=== PATIENT | male | born 1950 | race Caucasian/White ===

== ENCOUNTER → 2016-08-29 | Outpatient (CLI) | payer MEDICARE, OTHER ==
[2016-08-29 08:06] LABS: BASOPHILS % (AUTO) 0 % (0-2); EOSINOPHILS # (AUTO) 0.1 10^3uL; EOSINOPHILS % (AUTO) 2 % (0-4); LYMPHOCYTES # (AUTO) 1.1 X10^3; MEAN CORPUSCULAR HEMOGLOBIN 29.5 PG (26.0-34.0); MEAN CORPUSCULAR HGB CONC 33.4 g/dL (31.0-37.0); MEAN CORPUSCULAR VOLUME 88 FL (80-100); MEAN PLATELET VOLUME 9.7 FL (6.0-9.5); MONOCYTES # (AUTO) 0.9 X10^3; MONOCYTES % (AUTO) 15 % (3-11); NEUTROPHILS % (AUTO) 65 % (51-67); PLATELET COUNT 195 10^3uL (150-450)
[2016-08-29 08:27] LABS: ALBUMIN 4.4 g/dL (3.4-5.0); ANION GAP 15.8 MEQ/L (3-15); CALCULATED IONIZED CALCIUM 4.4 mg/dL (3.8-4.6); TOTAL PROTEIN 6.8 g/dL (6.4-8.5)
== END ==
LOC: LAB 07:52
PROVIDERS: ATTEND Internal Medicine Hematology & Oncology
DX: C81.90 Hodgkin lymphoma, unspecified, unspecified site (principal)
CPT/HCPCS: 36415; 80053; 83615; 85025

== ENCOUNTER → 2016-08-31 | Outpatient (CLI) | payer MEDICARE, OTHER ==
[~2016-08-31] MED LIST: LVT.05T PO; MELA1TAB8 PO
--- NOTE | 2016-08-31 12:32 | Diagnostic Imaging Report ---
PROCEDURE: CT chest, abdomen, and pelvis with contrast. TECHNIQUE: Multiple contiguous axial images were obtained through the chest, abdomen, and pelvis after the administration of intravenous contrast. INDICATION: Lymphoma. COMPARISON: Exam compared 08/12/2015. FINDINGS: NECK: There is mild membrane thickening involving left greater than right maxillary sinuses. No air-fluid level. No bony destruction. Mastoids and middle ear cavities clear. The orbits are unremarkable. No pathologically enlarged morphologically distorted nor abnormally numerous cervical lymph nodes were found. The nasopharynx, oropharynx and hypopharynx unremarkable. The parotid, submandibular and thyroid glands unremarkable. CHEST: A right axillary node measures 1.5 x 0.9 cm unchanged from prior. Pretracheal node at the level of the sondra measures 1.7 x 1.2 cm, unchanged. Tiny low density right hilar node just above the right pulmonary artery, is 7 mm, barely perceptible on followup. No pathological appearing hilar favian tissue. No new mass. There is no pleural or pericardial effusion. There is no focal pulmonary consolidation, dominant lung mass or suspicious pulmonary nodules. There is no effusion. No acute chest wall pathology. ABDOMEN AND PELVIS: Nonfocal spleen remains within normal limits of size. The liver unremarkable. There is no adrenal mass. The pancreas normal. Unobstructed kidneys appeared normal. There is no abdominal, pelvic, mesenteric or retroperitoneal lymphadenopathy. Prostatomegaly indents the urinary bladder base, unchanged. There is partial visualization of a small left hydrocele. Atherosclerotic aortoiliac vessels are unobstructed and nonaneurysmal. IMPRESSION: NECK: Stable unremarkable CT neck. CHEST: Stable precarinal and right axillary lymph nodes not convincingly pathologic. No new mass or adverse development. No acute finding. ABDOMEN AND PELVIS: No adenopathy, obstructive features, third spaced fluids or acute abnormalities. Dictated by: Dictated on workstation # [id number]
== END ==
LOC: RAD 07:40
PROVIDERS: ATTEND Internal Medicine Hematology & Oncology
DX: C81.90 Hodgkin lymphoma, unspecified, unspecified site (principal)
CPT/HCPCS: 70491; 71260; 74177; Q9967